=== PATIENT | male | born 1960 | race Caucasian/White ===

== ENCOUNTER → 2019-05-12 | Outpatient (CLI) | payer OTHER ==
--- NOTE | 2019-05-12 13:32 | Diagnostic Imaging Report ---
PROCEDURE: MRI left joint lower extremity without contrast. TECHNIQUE: Multiplanar, multisequence [id number] MRI of the left lower extremity was accomplished. INDICATION: Left knee pain, no known injury. COMPARISON: None. FINDINGS: No acute fracture or dislocation is seen in the left knee. Subcortical cyst-like changes and edema are seen in the patella. There are marginal osteophytes in all three compartments. There is a small left knee joint effusion. The articular cartilage in the patellofemoral compartment demonstrates moderate thinning with multiple small full-thickness defects at the lateral facet and median ridge. The articular cartilage in the medial compartment demonstrates mild thinning and surface irregularity and heterogeneity. The articular cartilage in the lateral compartment demonstrates mild heterogeneity with no large full-thickness defects. There is complex tearing and maceration of the medial meniscus, particularly the posterior horn and body. The medial meniscus is nearly completely extruded. The lateral meniscus demonstrates blunting of the free edge, but otherwise no discrete tear is seen. The anterior and posterior cruciate ligaments are intact. The medial collateral ligament is intact. There is mild tendinosis of the popliteus tendon; otherwise, the lateral collateral ligamentous complex is intact. There is a multiseptated fluid collection posterior to the proximal tibia measuring 2.5 x 1.6 cm in size, which may represent a ganglion cyst. The soft tissues about the left knee are otherwise unremarkable. IMPRESSION: 1. Tricompartmental degenerative changes and cartilage loss in the left knee, most pronounced in the patellofemoral compartment. 2. Extensive complex tearing and maceration of the medial meniscus. Blunting of the free edge of the lateral meniscus. 3. Small left knee joint effusion. Posterior ganglion cyst. Dictated by: Dictated on workstation # [id number]
== END ==
LOC: RAD 12:08
PROVIDERS: ATTEND Orthopaedic Surgery
DX: S83.242A Other tear of medial meniscus, current injury, left knee, initial encounter (principal); M17.12 Unilateral primary osteoarthritis, left knee; M25.462 Effusion, left knee; M67.462 Ganglion, left knee
CPT/HCPCS: 73721